=== PATIENT | male | born 1965 | race Caucasian/White ===

== ENCOUNTER 2017-06-16 07:55 | Emergency (ER) | payer OTHER ==
[2017-06-16] MEDS ORDERED: Sulfamethoxazole/TMP 800/160mg Tab PO ONE (08:08)
[2017-06-16] MEDS ORDERED: Sulfamethoxazole/TMP 800/160mg Tab ONE (08:14)
--- NOTE | 2017-06-16 08:17 | ED Physician Chart ---
Chief Complaint/HPI - Patient Information Date Seen:: 06/16/17 Time Seen:: 08:00 Chief Complaint:: swelling, redness and pain right hand History of Present Illness:: Patient was stung by little black fly yesterday at about 1500 after which he developed redness, swelling and pain of his right hand, right wrist and distal right forearm. No chills or fever. Patient is right-hand dominant. With previous insect bites or stings he's had some swelling but not as severe as with this episode. Historian:: Patient Review:: Nurse's Note Reviewed Review of Systems - Review of Systems General/Constitutional: No fever, No chills Skin: Skin lesions Head: No headache Eyes: No loss of vision ENT: No earache Neck: No neck pain Cardio Vascular: No chest pain, No palpitations Pulmonary: No SOB GI: No nausea, No vomiting G/U: No dysuria, No frequency Musculoskeletal: No bone or joint pain Endocrine: No polyuria, No polydipsia Psychiatric: No prior psych history Hematopoietic: No bruising Allergic/Immuno: No urticaria Neurological: No focal symptoms, No weakness Past Medical History - Past Medical History Past Medical History: Other (asthmatic bronchitis) Family History: Diabetes Melitus Social History: Non Smoker, Alcohol, Other (occasional alcohol only) Surgical History: None Psychiatricy History: None Medication: None Physical Exam - Physical Examination General/Constitutional: Awake, Alert Head: Atraumatic Eyes: Lids, conjuctiva normal, PERRL Other Skin comments:: There is redness and swelling of the right hand, right wrist and distal right forearm. The site of the bite is on the dorsum about 3 cm proximal to the webspace between the thumb and index finger. Neurovascular status is intact. ENMT: Nasal exam nl, Lips, teeth, gums nl, Oropharynx nl Neck: No nuchal rigidity Respiratory: Nl effort/Exclusion Cardio Vascular: RRR GI: No tenderness/rebounding/guarding, No organomegaly, No hernia : No CVA tenderness Extremities: No tenderness or effusion Neuro/Psych: Alert/oriented Misc: Normal back Assessment - Assessment General Assessment: Patient has either a severe local allergic reaction which is more likely or a cellulitis which is less likely. Will cover for cellulitis with antibiotics. ED Septic Shock - . Is Septic Shock (SBP<90, OR Lactate>4 mmol\L) present?: No Reassessment (Disposition) - Reassessment Reassessment Condition:: Unchanged - Diagnosis Diagnosis:: Cellulitis or allergic reaction right hand, right wrist and distal right forearm. - Aftercare/Follow up Instructions Aftercare/Follow-Up Instructions:: Refer to Discharge Instructions Medication Prescribed:: Prescription for Keflex 500 mg 4 times a day for 10 days and Bactrim DS 1 twice a day for 10 days. Prescription also for Atarax 25 mg #20 to take 14 times a day and ibuprofen 400 mg #30 to take 1 3 times a day. - Patient Disposition Discharge/Transfer:: Home Condition at Disposition:: Stable, Unchanged ED Discharge Plan - Patient Disposition Instructions: Cellulitis, [id number]
== END 2017-06-16 08:38 | disposition home or self-care (01) ==
LOC: ER 07:55
DX: M79.641 Pain in right hand (principal)
CPT/HCPCS: 99283; 96372; J1885; Z7502; Z7610